=== PATIENT | female | born 1970 | race Asian ===

== ENCOUNTER 2018-10-02 18:11 | Emergency (ER) | payer OTHER ==
[2018-10-02 18:18] VITALS: BP 123/79; PULSE 108; TEMP 98.4; BMI 23.3
[2018-10-02] MEDS ORDERED: FAMOTIDINE 20 MG/50 ML IVPB 20 MG/50 ML MG IVPB ONE ×2 (20:08→20:11)
[2018-10-02] MEDS ORDERED: SODIUM CHLORIDE 1,000 ML IV STA (20:08)
[2018-10-02] MEDS ORDERED: methylPREDNISolone NA SUCC 125 MG/2 ML VIAL IVPB ONE (20:08)
--- NOTE | 2018-10-02 20:08 | PDOC ---
History of Present Illness - General Chief Complaint: Rash Stated Complaint: DIZZINESS, RASH, WEAK Time Seen by Provider: 10/02/18 19:54 History Source: Patient Exam Limitations: No Limitations - History of Present Illness Initial Comments: 10/02/18 20:28 Best Contact: PCP:Dr Luong Pmhx: Denies Pshx: 2003: Lap cholecystectomy. /2010: C section Allergies:NKDA FH:None Social Hx: Cigarettes/ 0 Alcohol/ 0 Drugs/0 LMP:09/2018 48-year-old female presents to the emergency department complaining of bilateral anterior forearms/upper back rash which she constantly scratches for the past 3 weeks. Patient states she saw her PMD 3 weeks ago and was told it will go away. 2 weeks ago, patient saw her senior administrator support and was informed that it was dry skin and gave her triamcinolone acetonide 0.025% twice a day to affected area with minimal relief. Patient denies change of detergent, new food , new environment, new soaps or perfume. Patient denied taking any Benadryl or [id number] supportive care. Patient denies history of similar symptoms. Patient states she is also complaining of her room spinning when and has been diagnosed with vertigo. Patient denies taking anything for it. Patient denies fever, chills, headache, dizziness, lightheadedness, nausea/vomiting, facial pains, neck/back pain/stiffness, chest pain, shortness of breath, abdominal pain , flank pain, urinary symptoms, extremity numbness or tingling sensation, any other complaints. Past History - Past Medical History Allergies/Adverse Reactions: Allergies Allergy/AdvReac Type Severity Reaction Status Date / Time No Known Allergies Allergy Verified 10/02/18 18:18 Home Medications: Ambulatory Orders Ranitidine [Zantac -] 150 mg PO DAILY #30 tablet 09/07/15 Meclizine HCl [Antivert -] 25 mg PO QID PRN #20 tablet 06/25/16 COPD: No GI Disorders: Yes (GERD) - Surgical History Cholecystectomy: Yes (?) - Reproductive History (#): 5 Para: 3 - Suicide/Smoking/Psychosocial Hx Smoking History: Never smoked Information on smoking cessation initiated: No Hx Alcohol Use: No Drug/Substance Use Hx: No Substance Use Type: None Review of Systems - Review of Systems Able to Perform ROS?: Yes Comments:: 10/02/18 20:29 CONSTITUTIONAL: Absent: fever, chills, diaphoresis, generalized weakness, malaise, loss of appetite HEENT: Absent: rhinorrhea, nasal congestion, throat pain, throat swelling, difficulty swallowing, mouth swelling, ear pain, eye pain, visual Changes CARDIOVASCULAR: Absent: chest pain, loss of consciousness, palpitations, irregular heart rate, peripheral edema RESPIRATORY: Absent: cough, shortness of breath, dyspnea with exertion, orthopnea, wheezing, stridor, hemoptysis GASTROINTESTINAL: Absent: abdominal pain, abdominal distension, nausea, vomiting, diarrhea, constipation, melena, hematochezia GENITOURINARY: Absent: dysuria, frequency, urgency, hesitancy, hematuria, flank pain, genital pain MUSCULOSKELETAL: Absent: myalgia, arthralgia, joint swelling SKIN: + Rash to bilateral anterior arm, upper back Denies: Pain/drainage or red streaks Absent: pallor HEMATOLOGIC/IMMUNOLOGIC: Absent: easy bleeding, easy bruising, lymphadenopathy, frequent infections ENDOCRINE: Absent: unexplained weight gain, unexplained weight loss, heat intolerance, cold intolerance NEUROLOGIC: Absent: headache, focal weakness or paresthesias, dizziness, unsteady gait, seizure, mental status changes, bladder or bowel incontinence PSYCHIATRIC: Absent: anxiety, depression, suicidal or homicidal ideation, hallucinations. 10/02/18 20:30 Is the patient limited Wallisian proficient: No *Physical Exam - Vital Signs Last Vital Signs Temp Pulse Resp BP Pulse Ox 98.4 F 108 H 18 123/79 100 10/02/18 18:16 10/02/18 18:16 10/02/18 18:16 10/02/18 18:16 10/02/18 18:16 - Physical Exam Comments: 10/02/18 20:29 GENERAL: Well developed, well nourished. Awake and alert. No acute distress. HEENT: Normocephalic, atraumatic. PERRLA, EOMI. No conjunctival pallor. Sclera are non- icteric. Moist mucous membranes. Oropharynx is clear. NECK: Supple. Full ROM. No JVD. Carotid pulses 2+ and symmetric, without bruits. No thyromegaly. No lymphadenopathy. CARDIOVASCULAR: Regular rate and rhythm. No murmurs, rubs, or gallops. Distal pulses are 2+ and symmetric. PULMONARY: No evidence of respiratory distress. Lungs clear to auscultation bilaterally. No wheezing, rales or rhonchi. ABDOMINAL: Soft. Non-tender. Non-distended. No rebound or guarding. No organomegaly. Normoactive bowel sounds. MUSCULOSKELETAL Normal range of motion at all joints. No bony deformities or tenderness. No CVA tenderness. EXTREMITIES: No cyanosis. No clubbing. No edema. No calf tenderness. SKIN: + Papules to bilateral anterior arm with excoriation/upper neck Negative lymphangitis, negative swelling, negative drainage Warm and dry. Normal capillary refill. . No jaundice. NEUROLOGICAL: Alert, awake, appropriate. Cranial nerves 2-12 intact. No deficits to light touch and temperature in face, upper extremities and lower extremities. No motor deficits in the in face, upper extremities and lower extremities. Normoreflexic in the upper and lower extremities. Normal speech. Toes are down- going bilaterally. Gait is normal without ataxia. PSYCHIATRIC: Cooperative. Good eye contact. Appropriate mood and affect. Moderate Sedation - Procedure Monitoring Vital Signs: Procedure Monitoring Vital Signs Temperature 98.4 F 10/02/18 18:16 Pulse Rate 108 H 10/02/18 18:16 Respiratory Rate 18 10/02/18 18:16 Blood Pressure 123/79 10/02/18 18:16 O2 Sat by Pulse Oximetry (%) 100 10/02/18 18:16 ED Treatment Course - LABORATORY CBC & Chemistry Diagram: 10/02/18 20:10 10/02/18 20:10 *DC/Admit/Observation/Transfer Diagnosis at time of Disposition: Rash, Vertigo - Discharge Dispostion Disposition: HOME Condition at time of disposition: Stable Decision to Admit order: No - Referrals Referrals: Allan Luong MD [Primary Care Provider] - Obi Ram MD [Staff Physician] - - Patient Instructions Printed Discharge Instructions: DI for Vertigo, DI for Rash Additional Instructions: Follow-up with the neurologist recording your vertical. Follow-up with your senior administrator support regarding your rash. You were given Solu-Medrol 125 mg/IV, Pepcid 20 mg IV, Benadryl milligrams IV, and 2 L of fluid Return back to the emergency department for severe/persistent or worsening symptoms Benadryl 50mg at night/will cause drowsiness. No driving or operating heavy machinery Zantac 150mg daily Rx: medrol dose pack - Post Discharge Activity Progress Note - Progress Note Progress Note: 2120hrs: PT states she feels much better and wishes to be dc
[2018-10-02] MEDS ORDERED: methylPREDNISolone NA SUCC 125 MG/2 ML VIAL ONE ×2 (20:11→20:12)
[2018-10-02 20:25] LABS: BASO % 0.5 % (0-2.0); EOS % 0.4 % (0-4.5); HEMATOCRIT 37.8 % (32.4-45.2); HEMOGLOBIN 12.7 GM/dL (10.7-15.3); MCH 27.5 pg (25.7-33.7); MCHC 33.6 g/dl (32.0-36.0); MEAN CELL VOLUME 81.8 fl (80-96); MEAN PLT VOLUME 7.9 fl (7.5-11.1); MONO % 4.3 % (3.8-10.2); NEUT % 74.8 % (42.8-82.8); PLATELET COUNT 283 K/MM3 (134-434); RBC 4.62 M/mm3 (3.60-5.2); RDW 16.8 % (11.6-15.6)
[2018-10-02] MEDS ORDERED: MECLIZINE HCL 25 MG TABLET (FP) PO ONE (20:27)
[2018-10-02] MEDS ORDERED: MECLIZINE HCL 25 MG TABLET (FP) ONE (20:45)
[2018-10-02 21:14] LABS: GLUCOSE,RANDOM 171 mg/dL (74-106)
[2018-10-02 21:15] LABS: ALBUMIN 3.9 g/dl (3.4-5.0); ANION GAP 9 MMOL/L (8-16); BILIRUBIN,TOTAL 0.2 mg/dL (0.2-1); BLOOD UREA NITROGEN 7 mg/dL (7-18); CALCIUM 8.8 mg/dL (8.5-10.1); CHLORIDE 109 mmol/L (98-107); CO2 24 mmol/L (21-32); CREATININE 0.6 mg/dL (0.55-1.3); POTASSIUM 4.1 mmol/L (3.5-5.1); SGOT/AST 16 U/L (15-37); SODIUM 142 mmol/L (136-145); TOT PROT 7.6 g/dl (6.4-8.2)
[2018-10-02 21:16] LABS: ALK PHOS 76 U/L (45-117); SGPT/ALT 21 U/L (13-61)
== END 2018-10-02 21:43 | disposition home or self-care (01) ==
LOC: JER 18:11
PROC: 3E033GC Introduction of Other Therapeutic Substance into Peripheral Vein, Percutaneous Approach (ICD-10-PCS; principal; 2018-10-02)
PROC: 3E0337Z Introduction of Electrolytic and Water Balance Substance into Peripheral Vein, Percutaneous Approach (ICD-10-PCS; 2018-10-02)
DX: R21 Rash and other nonspecific skin eruption (principal); R42 Dizziness and giddiness; K21.9 Gastro-esophageal reflux disease without esophagitis
CPT/HCPCS: 36415; 80053; 84702; 85025; 99281-25; J7030

== ENCOUNTER 2018-10-09 15:57 | Emergency (ER) | payer OTHER ==
--- NOTE | 2018-10-09 16:09 | PDOC ---
Rapid Medical Evaluation Time Seen by Provider: 10/09/18 16:07 Medical Evaluation: Allergies Allergy/AdvReac Type Severity Reaction Status Date / Time No Known Allergies Allergy Verified 10/02/18 18:18 10/09/18 16:08 I have performed a brief in-person evaluation of this patient. The patient presents with a chief complaint of: Rapid heart rate Pertinent physical exam findings: NAD I have ordered the following:Nothing The patient will proceed to the ED for further evaluation. Discharge Disposition - Diagnosis Sinus tachycardia (Ruled Out): Tachycardia - Referrals - Patient Instructions - Post Discharge Activity
[2018-10-09 16:11] VITALS: BMI 23.3
[2018-10-09] MEDS ORDERED: SODIUM CHLORIDE 1,000 ML IV STA (16:30)
[2018-10-09] MEDS ORDERED: ACETAMINOPHEN 1000 MG/100 ML VIAL (NON FORMULARY) IVPB ONE (16:43)
[2018-10-09] MEDS ORDERED: RANITIDINE HCL 150 MG TABLET (FP) PO ONE (16:43)
[2018-10-09] MEDS ORDERED: SUCRALFATE 1 GM TABLET (FP) PO ONE (16:43)
[2018-10-09] MEDS ORDERED: MAG HYDROX/AL HYDROX/SIMETH 30 ML UNIT-DOSE CUP PO ONE (16:43)
--- NOTE | 2018-10-09 16:53 | PDOC ---
History of Present Illness - General Chief Complaint: Palpitations Stated Complaint: RAPID HEART BEAT Time Seen by Provider: 10/09/18 16:07 - History of Present Illness Initial Comments: 10/09/18 16:44 48 yo F with h/o vertigo, anxiety, and GERD who p/w lightheadedness, and tachycardia. Patient reports tachycardia to 106, while at outside ENT apt. for "sore throat." Patient with chronic tachycardia ~110, as documented in past ED encounters [facility]. Patient also endorses, chronic, burning, LUQ, and retrosternal chest pain at baseline. Currently on PPI therapy. Today denies change in chest or abdominal pain. Reports increased/accelerated heart rate, and mild SOB while at ENT today. Patient also reports intermittent lightheadedness today, with no identifiable triggers or alleviators. No home O2 requirements, or duoneb use. Patient denies vision change, leg pain/swelling, orthopnea, PND, cough, wheezing , N/V, F/C,, SOB, urinary complaints, abdominal pain, diarrhea, constipation, lightheadedness, weakness, sensory changes. PMHx: as noted above. Denies h/o ACS/ME, stent placement, CABG, DVT/PE, stress testing. Does not f/w nursery attendant. Surgical: Cholecystectomy, x 3 ROS: as noted SHx: Denies Etoh, tobacco use, IVDA Allergies: NKDA Past History - Past Medical History Allergies/Adverse Reactions: Allergies Allergy/AdvReac Type Severity Reaction Status Date / Time No Known Allergies Allergy Verified 10/09/18 16:09 Home Medications: Ambulatory Orders NK [No Known Home Medication] 10/09/18 COPD: No GI Disorders: Yes (GERD) - Surgical History Cholecystectomy: Yes (?) - Reproductive History (#): 5 Para: 3 - Suicide/Smoking/Psychosocial Hx Smoking History: Never smoked Hx Alcohol Use: No Drug/Substance Use Hx: No Substance Use Type: None Review of Systems - Review of Systems Comments:: 10/09/18 16:58 GENERAL/CONSTITUTIONAL: No fever or chills. No weakness. HEAD, EYES, EARS, NOSE AND THROAT: No change in vision. No ear pain or discharge. No sore throat. CARDIOVASCULAR: No chest pain or shortness of breath RESPIRATORY: No cough, wheezing, or hemoptysis. GASTROINTESTINAL: No nausea, vomiting, diarrhea or constipation. GENITOURINARY: No dysuria, frequency, or change in urination. MUSCULOSKELETAL: No joint or muscle swelling or pain. No neck or back pain. SKIN: No rash NEUROLOGIC: + Lightheadedness. No headache, vertigo, loss of consciousness, or change in strength/sensation. ENDOCRINE: No increased thirst. No abnormal weight change HEMATOLOGIC/LYMPHATIC: No anemia, easy bleeding, or history of blood clots. ALLERGIC/IMMUNOLOGIC: No hives or skin allergy. *Physical Exam - Vital Signs Last Vital Signs Temp Pulse Resp BP Pulse Ox 98.4 F 107 H 20 127/90 100 10/09/18 16:10 10/09/18 17:59 10/09/18 17:59 10/09/18 17:59 10/09/18 17:59 - Physical Exam Comments: 10/09/18 16:58 GENERAL: Awake, alert, and fully oriented, in no acute distress HEAD: No signs of trauma, normocephalic, atraumatic EYES: PERRLA, EOMI, sclera anicteric, conjunctiva clear ENT: Hearing grossly normal, nares patent, oropharynx clear without exudates. Moist mucosa NECK: Normal ROM, supple, no lymphadenopathy, JVD, or masses LUNGS: No distress, speaks full sentences, clear to auscultation bilaterally HEART: Irregular rate. Nml rhythm, normal S1 and S2, no murmurs, rubs or gallops , peripheral pulses normal and equal bilaterally. ABDOMEN: Soft, nontender, normoactive bowel sounds. No guarding, no rebound. No masses EXTREMITIES : Normal inspection, Normal range of motion, no edema. No clubbing or cyanosis. NEUROLOGICAL: Cranial nerves II through XII grossly intact. Normal speech, normal gait, no focal sensorimotor deficits SKIN: Warm, Dry, normal turgor, no rashes or lesions noted Moderate Sedation - Procedure Monitoring Vital Signs: Procedure Monitoring Vital Signs Temperature 98.4 F 10/09/18 16:10 Pulse Rate 107 H 10/09/18 17:59 Respiratory Rate 20 10/09/18 17:59 Blood Pressure 127/90 10/09/18 17:59 O2 Sat by Pulse Oximetry (%) 100 10/09/18 17:59 ED Treatment Course - LABORATORY CBC & Chemistry Diagram: 10/09/18 17:21 10/09/18 17:21 - ADDITIONAL ORDERS Additional order review: Laboratory Results 10/09/18 10/09/18 10/09/18 17:21 17:21 06:15 Sodium 140 Potassium 4.0 Chloride 107 Carbon Dioxide 27 Anion Gap 6 L BUN 6 L Creatinine 0.6 Creat Clearance w eGFR > 60 Random Glucose 114 H Calcium 9.1 Total Bilirubin 0.3 AST 16 ALT 26 Alkaline Phosphatase 85 Creatine Kinase 49 Troponin I < 0.02 Total Protein 7.8 Albumin 4.1 Serum , Qual Negative Urine Color Ltyellow Urine Appearance Clear Urine pH 6.0 Ur Specific [place] 1.012 Urine Protein Negative Urine Glucose (UA) Negative Urine Ketones Negative Urine Blood 2+ H Urine Nitrite Negative Urine Bilirubin Negative Urine Urobilinogen Negative Ur Leukocyte Esterase Negative Urine WBC (Auto) 2 Urine RBC (Auto) 1 Ur Epithelial Cells Rare Urine Mucus Rare 10/09/18 17:21 RBC 4.49 MCV 81.9 MCHC 34.1 RDW 16.3 H MPV 7.8 Neutrophils % 73.7 Lymphocytes % 19.5 Monocytes % 5.6 Eosinophils % 0.6 Basophils % 0.6 - RADIOLOGY Radiology Studies Ordered: Category Date Time Status CXRPORT [CHEST X-RAY PORTABLE*] [RAD] Stat Radiology 10/09/18 17:05 Ordered - Medications Given in the ED: ED Medications Discontinued Medications Generic Name Dose Route Start Last Admin Trade Name Freq PRN Reason Stop Dose Admin Acetaminophen 1,000 mg 10/09/18 16:43 10/09/18 17:40 Ofirmev Injection - IVPB 10/09/18 16:44 1,000 mg ONCE ONE Administration Al Hydroxide/Mg Hydroxide 30 ml 10/09/18 16:43 10/09/18 17:40 Mylanta Oral Suspension - PO 10/09/18 16:44 30 ml ONCE ONE Administration Sodium Chloride 1,000 mls @ 1,000 mls/hr 10/09/18 16:30 10/09/18 16:56 Normal Saline - IV 10/09/18 17:29 1,000 mls/hr ASDIR STA Administration Ranitidine HCl 300 mg 10/09/18 16:43 10/09/18 17:40 Zantac - PO 10/09/18 16:44 300 mg ONCE ONE Administration Sucralfate 1 gm 10/09/18 16:43 10/09/18 17:40 Carafate - PO 10/09/18 16:44 1 gm ONCE ONE Administration Medical Decision Making - Medical Decision Making 10/09/18 16:53 48 yo F with h/o vertigo, anxiety, and GERD who p/w lightheadedness, and tachycardia. HR 122, vitals otherwise wnl, AF, A&Ox3. Physical exam unremarkable. ACS/ME r/o. R/o PNA. Low risk PE based on Weils criteria. Although pt. tachycardic, patient with low risk PE, absent risk factors, and suspected dehydration. Will assess for cardiac dysarrythmias, hypoglycemia, electrolyte abnml, metabolic and toxic derangements, acid-base disturbances, infection. ED Course: 10/09/18 17:02 EKG: Sinus tachycardia 121,absent JILLIAN, STD. Nml R wave progression. Absent Q waves. Nml interval duration and axis. Similar to prior EKG 04/06/2014. 10/09/18 18:23 CBC, CMP: Unremarkable Trop: Neg 10/09/18 19:17 Patient symptoms improved. Stable for d/c with return precautions Advised to f/u with cardiology HR improved 102 *DC/Admit/Observation/Transfer Diagnosis at time of Disposition: Sinus tachycardia - Discharge Dispostion Condition at time of disposition: Stable Decision to Admit order: No - Referrals Referrals: Hussain Jarquin MD [Staff Physician] - Ronny Philip MD [Staff Physician] - - Patient Instructions Printed Discharge Instructions: DI for Tachycardia Additional Instructions: Please return to the emergency department with any new or worsening symptoms or concerns. Please follow up with your primary care physician, and cardiology within 72 hours. - Post Discharge Activity - Attestations Physician Attestion: 10/09/18 17:00 I attest to the information provided in this note.
[2018-10-09] MEDS ORDERED: RANITIDINE HCL 150 MG TABLET (FP) ONE (17:34)
[2018-10-09] MEDS ORDERED: MAG HYDROX/AL HYDROX/SIMETH 30 ML UNIT-DOSE CUP ONE (17:34)
[2018-10-09] MEDS ORDERED: ACETAMINOPHEN INJECTION 100 ML IVPB ONE (17:34)
[2018-10-09] MEDS ORDERED: SUCRALFATE 1 GM TABLET (FP) ONE (17:34)
--- NOTE | 2018-10-09 17:43 | PDOC ---
Attending Attestation - Resident Resident Name: Luis F Miranda - ED Attending Attestation I have performed the following: I have examined & evaluated the patient, The case was reviewed & discussed with the resident, I agree w/resident's findings & plan, Exceptions are as noted - HPI HPI: 10/09/18 17:42 The patient is a 48-year-old female with a past medical history significant for GERD, and anxiety presents to the emergency department with worsening palpitations. The patient presents with worsening intermittent palpitations since yesterday. The patient denies any modifying factor that exacerbated or alleviates the palpitations. The patient reports associated symptoms of pressure , burning sensation to the LUQ since lunchtime thats similar to prior GERD flare-ups. The patient reports the symptoms are aggravated with specific food intake. The patient reports currently she endorses nausea that comes with gastritis, denies vomiting. The patient was seen at ENTs office yesterday for a sore throat, at where she was noted to be tachycardic. Denies shortness of breath, hobson, worsening abd pain with exeriton, cough, leg swelling, hemoptysis, diaphoresis, diarrhea, melena, bpr, vomiting, back pain, or other pain. Denies hx of cardiac issues, no hx of a stress test. Denies hx of DVT or blood clots. Allergies: NKDA Social history: No tobacco, alcohol or drug use reported Surgical history: (2005, 2007, 2010) and Lap Cholecystectomy (2002) PCP: Dr. Luong - Physicial Exam PE: 10/09/18 18:23 GENERAL: The patient is awake, alert, and fully oriented, Nontoxic - in no acute distress. HEAD: Normocephalic, atraumatic. EYES: extraocular movements intact, sclera anicteric, conjunctiva clear. ENT: Normal voice, Moist mucous membranes. NECK: Normal range of motion, supple LUNGS: Breath sounds equal, clear to auscultation bilaterally. No wheezes, no rhonchi, no rales. HEART: Regular rate and rhythm, normal S1 and S2 without murmur, rub or gallop. ABDOMEN: Soft, nontender, normoactive bowel sounds. No guarding, no rebound. . No CVA tenderness EXTREMITIES: Normal range of motion, no edema. No clubbing or cyanosis. No cords, erythema, or tenderness. NEUROLOGICAL: No facial assymetry, Normal speech, PSYCH: Normal mood, normal affect. SKIN: Warm, Dry, normal turgor, - Medical Decision Making 10/09/18 18:24 48y F hx of gerd, anxiety, chronic tachycardia presents with complaint of was being seen by ENT and noted to be tachycardic to 106 and was complaining of lightheadedness and chest discomfort cw prior history of GERD notes intermittent lightheadedness today cp is retrosternal burning epigastric denies any other symptoms notes feeling sob earlier briefly but has since resolved suspect tachcyardia from mild dehydration epigastric pain from gerd HR improved with fliud hydration epigastric pain improved with GERD meds will dc with primary care fu retur npreucations were discussed Heart Score/ECG Review - History History: Slightly suspicious - Electrocardiogram EKG: Normal - Age Age: 45-65 - Risk Factors Based on the list above the patient has:: >/=3 risk factors or Hx atherosclerotic disease - Troponin Troponin: </= normal limit - Score Heart Score - Total: 3
[2018-10-09 17:51] LABS: BASO % 0.6 % (0-2.0); EOS % 0.6 % (0-4.5); HEMATOCRIT 36.8 % (32.4-45.2); HEMOGLOBIN 12.5 GM/dL (10.7-15.3); LYMPH % 19.5 % (8-40); MCH 27.9 pg (25.7-33.7); MCHC 34.1 g/dl (32.0-36.0); MEAN CELL VOLUME 81.9 fl (80-96); MEAN PLT VOLUME 7.8 fl (7.5-11.1); MONO % 5.6 % (3.8-10.2); NEUT % 73.7 % (42.8-82.8); PLATELET COUNT 361 K/MM3 (134-434); RBC 4.49 M/mm3 (3.60-5.2); RDW 16.3 % (11.6-15.6); WHITE BLOOD COUNT 7.4 K/mm3 (4.0-10.0)
[2018-10-09 18:14] LABS: ALBUMIN 4.1 g/dl (3.4-5.0); ALK PHOS 85 U/L (45-117); ANION GAP 6 MMOL/L (8-16); BILIRUBIN,TOTAL 0.3 mg/dL (0.2-1); BLOOD UREA NITROGEN 6 mg/dL (7-18); CALCIUM 9.1 mg/dL (8.5-10.1); CHLORIDE 107 mmol/L (98-107); CO2 27 mmol/L (21-32); CREATININE 0.6 mg/dL (0.55-1.3); GLUCOSE,RANDOM 114 mg/dL (74-106); SGOT/AST 16 U/L (15-37); SGPT/ALT 26 U/L (13-61); SODIUM 140 mmol/L (136-145); TOT PROT 7.8 g/dl (6.4-8.2)
[2018-10-09 18:31] LABS: URINE APPEARANCE CLEAR; URINE BILIRUBIN NEGATIVE (<2.0 mg/dL); URINE COLOR LTYELLOW; URINE GLUCOSE (UA) NEGATIVE (NEGATIVE); URINE KETONE NEGATIVE (NEGATIVE); URINE LEUK ESTERASE NEGATIVE (NEGATIVE); URINE NITRITE NEGATIVE (NEGATIVE); URINE PROTEIN NEGATIVE (NEGATIVE); URINE UROBILINOGEN NEGATIVE mg/dL (0.2-1.0)
[2018-10-09 18:53] LABS: EPI CELLS RARE /HPF (FEW); URINE MUCUS RARE
[2018-10-09 19:31] VITALS: BP 122/90; PULSE 95; TEMP 98.1
--- NOTE | 2018-10-10 14:42 | EKG ---
Test Reason : Blood Pressure : / mmHG Vent. Rate : 121 BPM Atrial Rate : 121 BPM P-R Int : 158 ms QRS Dur : 078 ms QT Int : 320 ms P-R-T Axes : 067 030 013 degrees QTc Int : 454 ms SINUS TACHYCARDIA POSSIBLE LEFT ATRIAL ENLARGEMENT NONSPECIFIC ST AND T WAVE ABNORMALITY ABNORMAL ECG WHEN COMPARED WITH ECG OF 06-APR-2014 19:46, NO SIGNIFICANT CHANGE WAS FOUND Confirmed by Perfecto Quinn MD ([id number]) on 10/10/2018 2:41:44 PM Referred By: Confirmed By:Perfecto Quinn MD
== END 2018-10-09 19:29 | disposition home or self-care (01) ==
LOC: JER 15:57
PROC: 3E0337Z Introduction of Electrolytic and Water Balance Substance into Peripheral Vein, Percutaneous Approach (ICD-10-PCS; principal; 2018-10-09)
PROC: 3E033NZ Introduction of Analgesics, Hypnotics, Sedatives into Peripheral Vein, Percutaneous Approach (ICD-10-PCS; 2018-10-09)
DX: R00.0 Tachycardia, unspecified (principal); K21.9 Gastro-esophageal reflux disease without esophagitis; F41.9 Anxiety disorder, unspecified
CPT/HCPCS: 36415; 80053; 81003; 81015; 82550; 84484; 84703; 85025; 93005; 93010; 96361; 96374; 99284-25; J0131; J7030

== ENCOUNTER 2021-12-22 05:47 | Emergency (ER) | payer OTHER ==
[2021-12-22 06:08] VITALS: BP 156/77; PULSE 120; TEMP 97.7; BMI 25.0
[2021-12-22] MEDS ORDERED: diphenhydrAMINE HCL 25 MG CAPSULE (FP) PO ONE ×2 (06:30→06:36)
[2021-12-22] MEDS ORDERED: DEXAMETHASONE LIQUID 0.5 MG/5 ML PO ONE (06:31)
[2021-12-22] MEDS ORDERED: DEXAMETHASONE SOD PHOSPHATE 10 MG/1 ML VIAL ONE (06:36)
== END 2021-12-22 06:44 | disposition home or self-care (01) ==
LOC: JER 05:47
DX: R21 Rash and other nonspecific skin eruption (principal)
CPT/HCPCS: 99283-25